=== PATIENT | female | born 1955 | race African-American/Black ===

== ENCOUNTER 2018-09-04 16:58 | Emergency (ER) | payer OTHER, MEDICAID ==
[~2018-09-04] VITALS: Ht 162.6 cm; Wt 61.0 kg
[2018-09-04 20:31] VITALS: BP 123/87
== END 2018-09-04 20:32 | disposition home or self-care (01) ==
LOC: ER 16:58
DX: H61.21 Impacted cerumen, right ear (principal); I10 Essential (primary) hypertension; M54.30 Sciatica, unspecified side; F17.200 Nicotine dependence, unspecified, uncomplicated; Z98.890 Other specified postprocedural states
CPT/HCPCS: 69209; 99283